=== PATIENT | female | born 2000 | race Caucasian/White ===

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

== ENCOUNTER 2021-08-23 17:00 | Emergency (ER) | payer BC, OTHER ==
[~2021-08-23] VITALS: Ht 165.1 cm; Wt 56.3 kg
[~2021-08-23 17:00] MED LIST: NEXP1IMP SC
[2021-08-23 18:59] VITALS: BP 133/61
== END 2021-08-23 19:01 | disposition home or self-care (01) ==
LOC: M ED 17:00
DX: F43.0 Acute stress reaction (principal); F32.89 Other specified depressive episodes; F41.8 Other specified anxiety disorders